=== PATIENT | female | born 1975 | race Caucasian/White ===

== ENCOUNTER 2017-03-16 12:25 | Emergency (ER) | payer OTHER, MEDICAID ==
[~2017-03-16] VITALS: Ht 162.6 cm; Wt 62.0 kg
[~2017-03-16 12:25] MED LIST: ALPR0.5T3 PO; CITA40TA4 PO; TOPI1TAB31 PO
[2017-03-16 12:27] VITALS: BP 101/62; PULSE 72; RESP 18; TEMP 98; O2SAT 97
--- NOTE | 2017-03-16 12:32 | PD ---
Physical Exam Date Seen by Provider: Mar 16, 2017 Time Seen by Provider: 12:31 Narrative 41 yo female here for vaginal discharge. Had recent intercourse with boyfriend. Has now had new discharge which is different for her. She wants to get checked. No pain. No N/V/D. No other medical complaints. Vitals are stable in triage. Awaiting bed placement. Data Data Last Documented VS Vital Signs Date Time Temp Pulse Resp B/P (MAP) Pulse Ox O2 Delivery O2 Flow Rate FiO2 03/16/17 12:27 98.0 72 18 101/62 (75) 97 Room Air Orders Orders Urinalysis - C+S If Indicated (03/16/17 12:30) Gc And Chlamydia Pcr (03/16/17 12:30) Ed Urine Pregnancytest Poc (03/16/17 12:30) MDM Medical Record Reviewed: Yes Supervised Visit with RILEY: No Jaxon Long Mar 16, 2017 12:32
--- NOTE | 2017-03-16 15:14 | PD ---
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 This patient complains of vaginal discharge. Duration is 3 days. Symptoms severity is mild to moderate. Not having pelvic pain. No alleviating factors. PFSH Past Medical History Asthma: Yes Anxiety: Yes Psychiatric: Yes (bipolar) ?: Not LMP: 03/2017 Menopausal: No : 3 Para: 2 : 1 Social History Alcohol Use: No ( ) Tobacco Use: No Substance Use: No Allergies-Medications (Allergen,Severity, Reaction): Coded Allergies: aspirin (Unverified Allergy, Mild, UNKN, 03/16/17) diphenhydramine (Unverified Allergy, Mild, RASH, 03/16/17) penicillin G (Unverified Allergy, Mild, UNKNOWN, 03/16/17) Reported Meds & Prescriptions Reported Meds & Active Scripts Active Metronidazole 500 Mg Tab 500 Mg PO TID Reported Topiramate 100 Mg Tab 100 Mg PO BID Citalopram (Citalopram Hydrobromide) 40 Mg Tab 40 Mg PO DAILY Review of Systems General / Constitutional: No: Fever HENT: No: Headaches Cardiovascular: No: Chest Pain or Discomfort Respiratory: No: Cough Physical Exam Narrative GASTROINTESTINAL: Abdomen soft, non-tender, nondistended. Positive bowel sounds. No hepato-splenomegaly, or palpable masses. No guarding. SKIN: Focused skin assessment reveals no rash or ulcers. Skin is warm and dry. Palpation shows no induration or nodules. Pelvic: No cervical motion tenderness. No blood or significant discharge in the vault. Scant minimal mucus noted Data Data Last Documented VS Vital Signs Date Time Temp Pulse Resp B/P (MAP) Pulse Ox O2 Delivery O2 Flow Rate FiO2 03/16/17 12:27 98.0 72 18 101/62 (75) 97 Room Air Orders Orders Gc And Chlamydia Pcr (03/16/17 12:30) Wet Prep Profile (03/16/17 14:44) Ed Discharge Order (03/16/17 16:54) Labs Laboratory Tests Test 03/16/17 14:45 Clue Cells (Wet Prep) PRESENT Vaginal Trichomonas (Wet Prep) NONE SEEN Vaginal Yeast (Wet Prep) NONE SEEN MDM Medical Decision Making Medical Screen Exam Complete: Yes Emergency Medical Condition: Yes Medical Record Reviewed: Yes Differential Diagnosis PID, vaginitis, cervicitis Narrative Course I have reviewed the patient's electronic medical record. Wet prep shows clue cells suggesting bacterial vaginosis GC chlamydia sent, pending at discharge One week of Flagyl prescribed Diagnosis Primary Impression: Bacterial vaginosis Additional Instructions: The patient was advised to follow up with their physician and return if they worsen. Med/Other Pt SpecificInfo: Prescription(s) given Scripts Metronidazole (Metronidazole) 500 Mg Tab 500 MG PO TID for Infection, #20 TAB 0 Refills Prov: Prudencio Dominique MD 03/16/17 Disposition: 01 DISCHARGE HOME Condition: Stable Prudencio Dominique MD Mar 16, 2017 15:14
[2017-03-16] MEDS ORDERED: METR500T10 PO (16:31)
[2017-03-16 17:25] LABS: CHLAMYDIA PCR NOT DETECTED (NOT DETECT); NEISSERIA PCR NOT DETECTED (NOT DETECT)
== END 2017-03-16 17:02 | disposition home or self-care (01) ==
LOC: NEPD 12:25
DX: N76.0 Acute vaginitis (principal)
CPT/HCPCS: 84703; 87210; 87491; 87591; 99283